=== PATIENT | male | born 1965 | race Two or more races ===

== ENCOUNTER 2024-01-08 21:09 | Emergency (ER) | payer BC, SELFPAY ==
[2024-01-08 21:10] VITALS: BMI 33.8
[2024-01-08 21:15] VITALS: BP 173/101
[2024-01-08] MEDS: NSS 1000 IV (21:20)
[2024-01-08 21:32] LABS: % Basophils 0.3 % (0-2); % Eosinophils 0.4 % (0-6); % Immature Granulocytes 0.4 % (0-0.5); % Lymphocytes 25.1 % (20.5-51.1); % Monocytes 3.4 % (1.7-9.3); % Neutrophils 70.4 % (42.2-75.2); Absolute Monocytes 0.3 10^3/uL (0.1-0.6); Absolute Neutrophils 5.5 10^3/uL (1.4-6.5); Hematocrit 38.8 % (39.0-52.0); Hemoglobin 13.3 g/dL (13.0-18.0); Mean Corp Hgb Conc. 34.3 g/dL (33.0-37.0); Mean Corpuscular Hgb 27.9 pg (27.0-31.0); Mean Corpuscular Volume 81.5 fL (80.0-94.0); Mean Platelet Volume 10.2 fL (7.4-10.4); Nucleated Red Blood Cells % 0 % (-); Platelet Count 245 10^3/uL (130-400); Red Blood Cell Count 4.76 10^6/uL (4.70-6.10); Red Cell Dist. Width 13.1 % (11.5-14.5); White Blood Cell Count 7.8 10^3/uL (4.8-10.8)
--- NOTE | 2024-01-08 21:45 | ED.GENMED ---
History of Present Illness
General
Chief Complaint: Weakness
Source: patient
Exam Limitations: none
Time Seen by Provider: 01/08/24 21:19
Nursing documentation reviewed up to this point in time: agreed with
Travel History
Have you had any contact with someone who has COVID-19?: No
Do you have any symptoms of coronavirus? Fever > 100 degrees, chills, cough, shortness of breath, sore throat, loss of taste or smell, muscle aches, or headache?: No
History of Present Illness
History of Present Illness:
58-year-old male CAD status post bypass surgery diabetes lives in [facility] works locally in [employer] apparently did not eat much today it was high, coworkers are worried about him because he was acting confused, brought to the ER
here he is feeling much better, has some nausea earlier, no chest pain no shortness of breath, no headache, no slurred speech no arm or leg weakness denies drugs or alcohol
Past History
Past History
ED Past Medical History: CAD, HTN and NIDDM
ED Past Surgical History: Cardiac
Social History
Tobacco: Non-smoker
Alcohol: None
Drug: None
Personal:
Living: with family
Employment: Employed
Review of Systems
Review of Systems
All Other Systems: Not applicable
Constitutional: Reports fatigue; Denies fever
EENT: Reports no symptoms
Respiratory: Reports no symptoms
Cardiac: Reports diaphoresis
ABD/GI: Reports nausea
: Reports no symptoms
Musculoskeletal: Reports no symptoms
Skin: Reports no symptoms
Neurological: Reports weakness; Denies dizzy, headache or numbness
Endocrine: Reports no symptoms
Hematologic/Lymphatic: Reports no symptoms
Phy Exam
Physical Exam
Physical Exam:
Physical Exam
General: 58 -[place] male no acute distress tells me he feels thirsty
Neck: Lips are dry
Heart: Regular
Lungs: no acute respiratory distress. clear bilaterally
Abdomen: Not
Neuro: alert and oriented. no focal neurological deficits
Skin: no rash
Psychiatric: Cooperative
Extremities: no edema.
Course
Orders/Labs/Results
Orders:
Orders
01/08/24 21:11
Electrocardiogram (*1) Urgent
Reason for Study: Fatigue / Weakness
EKG- Treatment ONCE
01/08/24 21:21
Complete Blood Count/With Diff Urgent
Comprehensive Metabolic Panel Urgent
Troponin I Urgent
01/08/24 21:27
0.9% Sodium Chloride 1000 ml [Nss] 1,000 ml IV BOLUS
01/08/24 21:49
CT Head W/o Iv Contrast Urgent
Comment:
Reason For Exam: Confusion
Abnormal Lab Results
01/08/24
21:21
Hct 38.8 L %
(39.0-52.0)
Glucose 131 H mg/dl
(70-99)
01/08/24 21:21
01/08/24 21:21
Vital Signs
Initial and Last Documented VS:
Initial Vital Signs
Temp Pulse Resp Pulse Ox
98.7 F 63 15 95
01/08/24 21:11 01/08/24 21:11 01/08/24 21:11 01/08/24 21:11
Last Documented Vital Signs
Temp Pulse Resp BP Pulse Ox
98.7 F 63 23 139/89 97
01/08/24 21:11 01/08/24 22:15 01/08/24 22:15 01/08/24 22:00 01/08/24 22:15
MDM/Problems Addressed
Differential Diagnosis Includes:
Hypoglycemia dehydration heat exposure occult infection doubt ACS by history or physical
MDM/Problems Addressed:
Weakness increased hunger and thirst dehydration
Chronic conditions affecting care: DM, HTN and CAD
Acute Exacerbation and/or Progression of Chronic Illness: DM, HTN and CAD
*Pulse Oximetry
Patient hypoxic: no
*EKG
Interpreted by ED Provider?: Yes
Interpretation: normal
Comparison EKG: no comparison EKG present
Heart Rate: 78
Rate: bradycardiac
Rhythm: sinus
Ischemia: non-specific ST changes
*Baker Test Interpretation
Rate: normal
Interpretation: normal
Heart Rate: 78
Rhythm: sinus
*Critical Care Note
Total Time (30-74mins, 75-104mins- exclusive of procedures): Not Applicable
Update Note
Update Note:
Update, etiology unclear patient states eating much today was in the heat, does not feel critically warm, will start with saline hydration Accu-Chek by EMS was in the normal range, electrolytes cardiac monitoring, he has a nonfocal neurologic exam,
not appear to be a stroke, will check CT R/o bleed, believe this is not particularly likely
10:10 PM labs are noted
11:[address] noted full report pending patient feeling better, reviewed results with him, , on her way
ED Attending Note
-
Portions of this chart may have been created with voice recognition software.� Occasional wrong word or��sound alike� substitutions may have occurred due to the inherent limitations of voice recognition software.
Discharge Plan
Departure
Patient Disposition: Home (Routine Discharge)
Date of Disposition: 01/08/24
Time of Disposition: 22:48
Patient with high blood pressure during this ER visit?: No
Condition: Good
Covid-19: Not Applicable
Discharge Problem:
Weakness
Instructions: Generalized Weakness (DC), BLOOD PRESSURE
Activity Restrictions/Additional Instructions:
Eat frequent small meals, drink plenty of fluids return to the ER for recurrent or worsening symptoms
Interventions
Interventions:
*General Assessment Last Done: 01/08/24 21:35
ED- Fall Risk Assessment Last Done: 01/08/24 21:35
ED- Cardiac Assessment Last Done: 01/08/24 21:35
ED- Neurological Assessment Last Done: 01/08/24 21:35
ED- Pulmonary Assessment Last Done: 01/08/24 21:35
Discharge Date and Time
Print Language: ETHIOPIAN
[2024-01-08 21:48] LABS: ALT (SGPT) 28 U/L (0-50); AST (SGOT) 31 U/L (17-59); Albumin 4.1 g/dl (3.5-5.0); Alkaline Phosphatase 104 U/L (38-126); Blood Urea Nitrogen 18 mg/dl (9-20); Calcium 9.4 mg/dl (8.4-10.2); Carbon Dioxide 23 mmol/L (22-30); Chloride 104 mmol/L (98-107); Glucose 131 mg/dl (70-99); Potassium 3.9 mmol/L (3.5-5.1); Sodium 138 mmol/L (135-145); Total Bilirubin 0.5 mg/dl (0.2-1.3); Total Protein 7.3 g/dl (6.3-8.2); eGFR > 60.00
[2024-01-08 21:59] LABS: Troponin I < 0.012 ng/ml
[2024-01-08 22:00] VITALS: BP 139/89
== END 2024-01-08 23:23 | disposition home or self-care (01) ==
LOC: EMR 21:09
PROVIDERS: EMERGENCY PHYSICIAN Emergency Medicine
DX: R53.1 Weakness (principal); I25.10 Atherosclerotic heart disease of native coronary artery without angina pectoris; E11.9 Type 2 diabetes mellitus without complications; E86.0 Dehydration; I10 Essential (primary) hypertension; Z95.1 Presence of aortocoronary bypass graft
CPT/HCPCS: 99284; 96360; 70450; 80053; 84484; 85025; 93005